=== PATIENT | female | born 1955 | race Caucasian/White ===

== ENCOUNTER 2016-11-08 12:14 | Outpatient (CLI) ==
--- NOTE | 2016-11-08 13:06 | US ---
EXAM: Left lower extremity venous doppler. HISTORY: Left leg pain and swelling, redness. COMPARISON: None available. TECHNIQUE: Multiple grayscale and color doppler images were obtained. FINDINGS: There is normal flow, compressibility and augmentation of flow within the left common fem oral, profunda, femoral, and popliteal veins. There is intraluminal echogenicity which expands the l umen of the left greater saphenous vein. There is lack of color flow within the left greater saphen ous vein. This is approximately 2 cm from the left common femoral vein. The clot extends following a into the distal left greater saphenous vein. There is lack of color flow and compressibility in the left peroneal vein. The left posterior tibial and anterior tibial veins are not seen. Subcutan eous edema noted in the calf. IMPRESSION: 1. Extensive thrombosis within the left greater saphenous vein with the proximal extent of the clot approximately 2 cm from the common femoral vein. 2. Deep vein thrombosis within the left peroneal vein. The left anterior tibial and posterior tibi al veins are not seen. 3. Subcutaneous edema of the calf. Comment: Findings were discussed with ordering provider by the mining engineering technologist at time of e xam completion.
== END 2016-11-08 12:15 | disposition home or self-care (01) ==
LOC: RAD 12:14
PROVIDERS: ATTEND Nurse Practitioner
DX: M79.605 Pain in left leg (principal)

== ENCOUNTER 2017-02-14 11:55 | Outpatient (CLI) ==
--- NOTE | 2017-02-14 12:49 | US ---
EXAM: ULTRASOUND LOWER EXTREMITY VENOUS DOPPLER EXAM HISTORY: Chronic DVT left leg. FINDINGS: Left lower extremity venous Doppler exam. Real time spivey-scale, Doppler spectral analysis and color-flow Doppler imaging performed. The veins targeted for evaluation include the common fem oral, greater saphenous, profundus, femoral, popliteal, peroneal, anterior tibial and posterior tibi al. Incomplete compression of the greater saphenous and peroneal veins with spontaneous blood flow remai parveen within these vessels. The evaluated veins otherwise demonstrated normal spontaneous flow and co mpression without evidence of thrombosis. When compared to prior exam of 11/08/2016, there has been improvement. Previous (same level) thromb osis was occlusive where as now the thrombosis is nonocclusive. IMPRESSION: Improving thrombus within the greater saphenous and peroneal veins currently nonocclusiv e.
== END 2017-02-14 11:56 | disposition home or self-care (01) ==
LOC: RAD 11:55
PROVIDERS: ATTEND Nurse Practitioner
DX: I82.502 Chronic embolism and thrombosis of unspecified deep veins of left lower extremity (principal)

== ENCOUNTER 2017-05-16 09:34 | Outpatient (CLI) ==
--- NOTE | 2017-05-16 10:29 | US ---
EXAM: Left lower extremity venous Doppler History: Follow-up deep vein thrombosis Comparison: Left lower extremity venous Doppler 02/14/2017 Technique: Multiple sonographic images through the left lower extremity were obtained. Color duplex Doppler was used to interrogate vascular flow. Findings: Partial flow with partial compression again seen within the left greater saphenous vein. The rest of the visualized left lower extremity deep venous structures demonstrate spontaneous flow w ith normal compression and normal augmentation. Left lower extremity subcutaneous edema. Impression: 1. No sonographic evidence for deep venous thrombosis. 2. Stable superficial thrombophlebitis of left greater saphenous vein
== END 2017-05-16 09:35 | disposition home or self-care (01) ==
LOC: RAD 09:34
PROVIDERS: ATTEND Nurse Practitioner
DX: I82.402 Acute embolism and thrombosis of unspecified deep veins of left lower extremity (principal)